=== PATIENT | male | born 1965 | race Two or more races ===

== ENCOUNTER 2020-04-29 21:07 | Inpatient (IN) | payer OTHER ==
[~2020-04-29] VITALS: Ht 175.3 cm; Wt 89.0 kg
[2020-04-29] MEDS ORDERED: ACETAMINOPHEN ES 500 MG TABLET PO ONE (22:00)
[2020-04-29 23:27] LABS: ABG BASE EXCESS 0.5 mmol/L; ABG HCO3 23.4 mmol/L; ABG PCO2 32.6 mmHg (35.0-45.0); ABG PH 7.473 (7.350-7.450); ABG PO2 69.3 mmHg (75.0-100.0); ABG SITE RIGHT RADIAL; VENT MODE Room Air
[2020-04-29] MEDS ORDERED: DEXAMETHASONE 4 MG TABLET PO ONE (23:45)
[2020-04-30] MEDS ORDERED: DEXAMETHASONE 1 MG TABLET ONE (00:18)
[2020-04-30] MEDS: CEFTRIAXONE 1 G in IV DEXTROSE 5% 50 ML IV ONE (00:30)
[2020-04-30] MEDS ORDERED: IV NORMAL SALINE 500 ML IV ONE (00:30)
[2020-04-30 00:55] LABS: BASOPHILS % (AUTO) 0.1 % (0.0-2.0); EOSINOPHILS # (AUTO) 0.5 K/uL (0.0-0.7); EOSINOPHILS % (AUTO) 7.9 % (0.0-7.0); HEMATOCRIT 41.6 % (36.7-47.1); HEMOGLOBIN 14.5 g/dL (12.5-16.3); LYMPHOCYTES # (AUTO) 0.4 K/uL (20.0-40.0); LYMPHOCYTES % (AUTO) 6.2 % (20.5-51.5); MEAN CORPUSCULAR HEMOGLOBIN 31.7 uug (23.8-33.4); MEAN CORPUSCULAR HGB CONC 35 g/dL (32.5-36.3); MEAN CORPUSCULAR VOLUME 90.8 fL (73.0-96.2); MONOCYTES # (AUTO) 0.2 K/uL (2.0-10.0); MONOCYTES % (AUTO) 2.5 % (0.0-11.0); NEUTROPHILS # (AUTO) 5.3 K/uL (1.8-8.9); NEUTROPHILS % (AUTO) 83.3 % (38.5-71.5); PLATELET COUNT (AUTO) 150 K/uL (152-348); RED BLOOD CELL COUNT(AUTO) 4.58 MIL/uL (4.06-5.63); WHITE BLOOD COUNT (AUTO) 6.3 K/uL (3.6-10.2)
[2020-04-30 01:07] LABS: BILIRUBIN,TOTAL 0.5 mg/dL (0.2-1.0); CREATININE 0.9 mg/dL (0.6-1.3); TOTAL PROTEIN, SERUM 6.6 g/dL (6.4-8.2)
[2020-04-30] MEDS ORDERED: TEMAZEPAM 15 MG CAPSULE PO PRN (01:30)
[2020-04-30] MEDS ORDERED: ONDANSETRON 4 MG/2 ML VIAL IV PRN (01:30)
[2020-04-30] MEDS ORDERED: CEFTRIAXONE 1 G VIAL ONE (02:28)
[2020-04-30 03:20] VITALS: BP 133/97
[2020-04-30] MEDS: DOXYCYCLINE HYCLATE 100 MG TABLET PO SCH ×2 (08:27→16:26)
[2020-04-30] MEDS: ENOXAPARIN SODIUM 40 MG/0.4 ML DISP.SYRIN SQ SCH (08:29)
[2020-04-30 12:00] VITALS: BP 127/73
[2020-04-30 16:09] VITALS: BP 131/81
[2020-04-30] MEDS: ACETAMINOPHEN 325 MG TABLET PO PRN (16:26)
[2020-04-30 20:03] VITALS: BP 119/70
[2020-05-01 00:03] VITALS: BP 125/86
[2020-05-01] MEDS: ALBUTEROL SULFATE 8 GM HFA.AER.AD IH PRN (02:00)
[2020-05-01 04:03] VITALS: BP 121/73
[2020-05-01 06:30] LABS: BASOPHILS % (AUTO) 0.1 % (0.0-2.0); HEMATOCRIT 41.9 % (36.7-47.1); HEMOGLOBIN 14.7 g/dL (12.5-16.3); LYMPHOCYTES # (AUTO) 1.3 K/uL (20.0-40.0); LYMPHOCYTES % (AUTO) 12.9 % (20.5-51.5); MEAN CORPUSCULAR HGB CONC 35 g/dL (32.5-36.3); MEAN CORPUSCULAR VOLUME 91.5 fL (73.0-96.2); MONOCYTES # (AUTO) 0.8 K/uL (2.0-10.0); MONOCYTES % (AUTO) 8.1 % (0.0-11.0); NEUTROPHILS # (AUTO) 7.8 K/uL (1.8-8.9); NEUTROPHILS % (AUTO) 78.9 % (38.5-71.5); PLATELET COUNT (AUTO) 189 K/uL (152-348); RED BLOOD CELL COUNT(AUTO) 4.58 MIL/uL (4.06-5.63); WHITE BLOOD COUNT (AUTO) 9.9 K/uL (3.6-10.2)
[2020-05-01 06:51] LABS: BILIRUBIN,TOTAL 0.5 mg/dL (0.2-1.0); CREATININE 0.8 mg/dL (0.6-1.3); TOTAL PROTEIN, SERUM 6.8 g/dL (6.4-8.2)
[2020-05-01] MEDS: CEFTRIAXONE 1 G in IV DEXTROSE 5% 50 ML IV SCH (08:28)
[2020-05-01] MEDS: DEXAMETHASONE 4 MG TABLET PO SCH (08:28)
[2020-05-01] MEDS: DOXYCYCLINE HYCLATE 100 MG TABLET PO SCH (08:28)
[2020-05-01] MEDS: ENOXAPARIN SODIUM 40 MG/0.4 ML DISP.SYRIN SQ SCH (08:30)
[2020-05-01] MEDS: ACETAMINOPHEN 325 MG TABLET PO PRN (11:46)
[2020-05-01] MEDS: ZINC SULFATE 220 MG CAPSULE PO SCH (11:46)
[2020-05-01] MEDS: CHOLECALCIFEROL 1,000 UNIT TABLET PO SCH (11:46)
[2020-05-01 12:00] VITALS: BP 125/79
[2020-05-01] MEDS: AZITHROMYCIN IV 500 MG in IV DEXTROSE 5% 250 ML IV SCH (13:01)
[2020-05-01 15:53] VITALS: BP 123/81
[2020-05-01] MEDS ORDERED: REMDESIVIR (CHARGED) 200 MG in IV NORMAL SALINE 210 ML IV ONE (18:00)
[2020-05-01 20:17] VITALS: BP 112/75
[2020-05-01] MEDS: MELATONIN 3 MG TABLET PO SCH (20:30)
[2020-05-02 01:42] VITALS: BP 119/74
[2020-05-02 06:32] VITALS: BP 114/78
[2020-05-02 07:39] LABS: HEMATOCRIT 42.1 % (36.7-47.1); HEMOGLOBIN 14.4 g/dL (12.5-16.3); LYMPHOCYTES # (AUTO) 1.1 K/uL (20.0-40.0); LYMPHOCYTES % (AUTO) 12.8 % (20.5-51.5); MEAN CORPUSCULAR HEMOGLOBIN 31.5 uug (23.8-33.4); MEAN CORPUSCULAR HGB CONC 34 g/dL (32.5-36.3); MEAN CORPUSCULAR VOLUME 92.1 fL (73.0-96.2); MONOCYTES # (AUTO) 1.1 K/uL (2.0-10.0); MONOCYTES % (AUTO) 12.4 % (0.0-11.0); NEUTROPHILS # (AUTO) 6.6 K/uL (1.8-8.9); NEUTROPHILS % (AUTO) 74.8 % (38.5-71.5); PLATELET COUNT (AUTO) 247 K/uL (152-348); RED BLOOD CELL COUNT(AUTO) 4.57 MIL/uL (4.06-5.63); WHITE BLOOD COUNT (AUTO) 8.8 K/uL (3.6-10.2)
[2020-05-02 07:45] LABS: BILIRUBIN,DIRECT 0.2 mg/dL (0.0-0.2); BILIRUBIN,TOTAL 0.6 mg/dL (0.2-1.0); CREATININE 0.7 mg/dL (0.6-1.3); POTASSIUM 3.9 mmol/L (3.5-5.1); TOTAL PROTEIN, SERUM 6.5 g/dL (6.4-8.2)
[2020-05-02 08:00] VITALS: BP 115/68
[2020-05-02] MEDS: CEFTRIAXONE 1 G in IV DEXTROSE 5% 50 ML IV SCH (08:01)
[2020-05-02] MEDS: ZINC SULFATE 220 MG CAPSULE PO SCH (09:43)
[2020-05-02] MEDS: DEXAMETHASONE 4 MG TABLET PO SCH (09:43)
[2020-05-02] MEDS: CHOLECALCIFEROL 1,000 UNIT TABLET PO SCH (09:43)
[2020-05-02] MEDS: ENOXAPARIN SODIUM 40 MG/0.4 ML DISP.SYRIN SQ SCH (09:44)
[2020-05-02 12:00] VITALS: BP 118/78
[2020-05-02] MEDS ORDERED: REMDESIVIR (CHARGED) 100 MG in IV NORMAL SALINE 230 ML IV SCH (12:00)
[2020-05-02] MEDS: AZITHROMYCIN IV 500 MG in IV DEXTROSE 5% 250 ML IV SCH (12:55)
[2020-05-02] MEDS: REMDESIVIR (CHARGED) 100 MG in IV NORMAL SALINE 100 ML IV SCH (17:30)
[2020-05-02] MEDS: ALBUTEROL SULFATE 8 GM HFA.AER.AD IH PRN (19:20)
[2020-05-02 20:30] VITALS: BP 114/76
[2020-05-02] MEDS: MELATONIN 3 MG TABLET PO SCH (20:51)
[2020-05-03 00:26] VITALS: BP 112/65
[2020-05-03 04:25] VITALS: BP 117/79
[2020-05-03 06:47] LABS: BASOPHILS % (AUTO) 0.1 % (0.0-2.0); HEMATOCRIT 42.5 % (36.7-47.1); HEMOGLOBIN 14.6 g/dL (12.5-16.3); LYMPHOCYTES # (AUTO) 1.3 K/uL (20.0-40.0); LYMPHOCYTES % (AUTO) 15.3 % (20.5-51.5); MEAN CORPUSCULAR HEMOGLOBIN 31.7 uug (23.8-33.4); MEAN CORPUSCULAR HGB CONC 34 g/dL (32.5-36.3); MEAN CORPUSCULAR VOLUME 92.2 fL (73.0-96.2); MONOCYTES # (AUTO) 1.2 K/uL (2.0-10.0); MONOCYTES % (AUTO) 13.6 % (0.0-11.0); PLATELET COUNT (AUTO) 302 K/uL (152-348); RED BLOOD CELL COUNT(AUTO) 4.61 MIL/uL (4.06-5.63); WHITE BLOOD COUNT (AUTO) 8.5 K/uL (3.6-10.2)
[2020-05-03 06:57] LABS: BILIRUBIN,DIRECT 0.2 mg/dL (0.0-0.2); BILIRUBIN,TOTAL 0.6 mg/dL (0.2-1.0); CREATININE 0.8 mg/dL (0.6-1.3); POTASSIUM 4.4 mmol/L (3.5-5.1); TOTAL PROTEIN, SERUM 6.8 g/dL (6.4-8.2)
[2020-05-03] MEDS: DEXAMETHASONE 4 MG TABLET PO SCH (08:27)
[2020-05-03] MEDS: CHOLECALCIFEROL 1,000 UNIT TABLET PO SCH (08:27)
[2020-05-03] MEDS: CEFTRIAXONE 1 G in IV DEXTROSE 5% 50 ML IV SCH (08:27)
[2020-05-03] MEDS: ZINC SULFATE 220 MG CAPSULE PO SCH (08:28)
[2020-05-03] MEDS: ENOXAPARIN SODIUM 40 MG/0.4 ML DISP.SYRIN SQ SCH (08:29)
[2020-05-03 11:45] VITALS: BP 109/67
[2020-05-03] MEDS: AZITHROMYCIN IV 500 MG in IV DEXTROSE 5% 250 ML IV SCH (12:22)
[2020-05-03 16:10] VITALS: BP 111/75
[2020-05-03] MEDS: REMDESIVIR (CHARGED) 100 MG in IV NORMAL SALINE 100 ML IV SCH (17:54)
[2020-05-03 20:31] VITALS: BP 123/77
[2020-05-03] MEDS: MELATONIN 3 MG TABLET PO SCH (21:00)
[2020-05-04 00:36] VITALS: BP 121/77
[2020-05-04 04:00] VITALS: BP 120/68
[2020-05-04 06:13] LABS: BASOPHILS % (AUTO) 0.2 % (0.0-2.0); HEMATOCRIT 44.4 % (36.7-47.1); HEMOGLOBIN 15.1 g/dL (12.5-16.3); LYMPHOCYTES # (AUTO) 1.4 K/uL (20.0-40.0); LYMPHOCYTES % (AUTO) 14.2 % (20.5-51.5); MEAN CORPUSCULAR HEMOGLOBIN 31.6 uug (23.8-33.4); MEAN CORPUSCULAR HGB CONC 34 g/dL (32.5-36.3); MEAN CORPUSCULAR VOLUME 93.1 fL (73.0-96.2); MONOCYTES # (AUTO) 1.2 K/uL (2.0-10.0); MONOCYTES % (AUTO) 12.4 % (0.0-11.0); NEUTROPHILS # (AUTO) 7.1 K/uL (1.8-8.9); NEUTROPHILS % (AUTO) 73.2 % (38.5-71.5); PLATELET COUNT (AUTO) 343 K/uL (152-348); RED BLOOD CELL COUNT(AUTO) 4.77 MIL/uL (4.06-5.63); WHITE BLOOD COUNT (AUTO) 9.7 K/uL (3.6-10.2)
[2020-05-04 06:39] LABS: BILIRUBIN,DIRECT 0.2 mg/dL (0.0-0.2); BILIRUBIN,TOTAL 0.6 mg/dL (0.2-1.0); CREATININE 0.7 mg/dL (0.6-1.3); POTASSIUM 4.1 mmol/L (3.5-5.1); TOTAL PROTEIN, SERUM 6.6 g/dL (6.4-8.2)
[2020-05-04] MEDS: CHOLECALCIFEROL 1,000 UNIT TABLET PO SCH (08:17)
[2020-05-04] MEDS: ZINC SULFATE 220 MG CAPSULE PO SCH (08:17)
[2020-05-04] MEDS: ENOXAPARIN SODIUM 40 MG/0.4 ML DISP.SYRIN SQ SCH (09:21)
[2020-05-04] MEDS: DEXAMETHASONE 4 MG TABLET PO SCH (09:23)
[2020-05-04 11:14] VITALS: BP 114/79
[2020-05-04] MEDS: AZITHROMYCIN IV 500 MG in IV DEXTROSE 5% 250 ML IV SCH (12:45)
[2020-05-04 16:14] VITALS: BP 121/80
[2020-05-04] MEDS: REMDESIVIR (CHARGED) 100 MG in IV NORMAL SALINE 100 ML IV SCH (18:46)
[2020-05-04 21:11] VITALS: BP 125/83
[2020-05-04] MEDS: MELATONIN 3 MG TABLET PO SCH (21:23)
[2020-05-05 00:11] VITALS: BP 115/77
[2020-05-05 05:02] VITALS: BP 116/81
[2020-05-05 07:10] LABS: BILIRUBIN,DIRECT 0.2 mg/dL (0.0-0.2); BILIRUBIN,TOTAL 0.7 mg/dL (0.2-1.0); CREATININE 0.7 mg/dL (0.6-1.3); POTASSIUM 4.1 mmol/L (3.5-5.1); TOTAL PROTEIN, SERUM 6.6 g/dL (6.4-8.2)
[2020-05-05 07:44] LABS: BASOPHILS % (AUTO) 0.1 % (0.0-2.0); EOSINOPHILS % (AUTO) 0.2 % (0.0-7.0); HEMATOCRIT 46.5 % (36.7-47.1); HEMOGLOBIN 15.4 g/dL (12.5-16.3); LYMPHOCYTES # (AUTO) 1.7 K/uL (20.0-40.0); LYMPHOCYTES % (AUTO) 19.7 % (20.5-51.5); MEAN CORPUSCULAR HEMOGLOBIN 31.2 uug (23.8-33.4); MEAN CORPUSCULAR HGB CONC 33 g/dL (32.5-36.3); MEAN CORPUSCULAR VOLUME 94.4 fL (73.0-96.2); MONOCYTES % (AUTO) 11.9 % (0.0-11.0); NEUTROPHILS # (AUTO) 5.8 K/uL (1.8-8.9); NEUTROPHILS % (AUTO) 68.1 % (38.5-71.5); PLATELET COUNT (AUTO) 339 K/uL (152-348); RED BLOOD CELL COUNT(AUTO) 4.93 MIL/uL (4.06-5.63); WHITE BLOOD COUNT (AUTO) 8.5 K/uL (3.6-10.2)
[2020-05-05] MEDS ORDERED: PRED20TA PO (09:07)
[2020-05-05] MEDS ORDERED: ASPI-869 PO (09:07)
[2020-05-05] MEDS: CHOLECALCIFEROL 1,000 UNIT TABLET PO SCH (09:12)
[2020-05-05] MEDS: ZINC SULFATE 220 MG CAPSULE PO SCH (09:14)
[2020-05-05] MEDS: DEXAMETHASONE 4 MG TABLET PO SCH (09:14)
[2020-05-05] MEDS: ENOXAPARIN SODIUM 40 MG/0.4 ML DISP.SYRIN SQ SCH (09:15)
[2020-05-05 11:11] VITALS: BP 114/75
[2020-05-05] MEDS: AZITHROMYCIN IV 500 MG in IV DEXTROSE 5% 250 ML IV SCH (12:05)
[2020-05-05 16:22] VITALS: BP 133/73
[2020-05-05] MEDS: REMDESIVIR (CHARGED) 100 MG in IV NORMAL SALINE 100 ML IV SCH (17:57)
[2020-05-05 20:00] VITALS: BP 123/75
== END 2020-05-05 21:30 | disposition home or self-care (01) | DRG 137 ==
LOC: ER 21:12 → TELE3 04-30 01:56
PROVIDERS: ADMIT Nurse Practitioner Acute Care; ATTEND Nurse Practitioner Acute Care
PROC: XW033E5 Introduction of Remdesivir Anti-infective into Peripheral Vein, Percutaneous Approach, New Technology Group 5 (ICD-10-PCS; principal; 2020-05-01)
DX: U07.1 COVID-19 (principal); D69.6 Thrombocytopenia, unspecified; J96.91 Respiratory failure, unspecified with hypoxia; E87.1 Hypo-osmolality and hyponatremia; E44.0 Moderate protein-calorie malnutrition; E86.1 Hypovolemia
CPT/HCPCS: 36415; 36600; 70030-TC; 71045; 83605; 85025; 85610; 85730; 86140; 86803; 87040; 87400; 87536; 93005; A9150; G0378; J0456; J0696; J1650; J3490; J3535; J7050; J7060; J8540; U0003